=== PATIENT | male | born 1980 | race Caucasian/White ===

== ENCOUNTER 2018-09-25 16:37 | Inpatient (IN) | payer OTHER ==
--- NOTE | 2018-09-25 18:42 | HP ---
"CIWA Score Nausea/Vomitin-Mild Nausea/No Vomiting Muscle Tremors: 4-Moderate,w/Arms Extend Anxiety: 3 Agitation: 4-Moderately Restless Paroxysmal Sweats: 3 (Increased facial moisture) Orientation: 1-Uncertain about Date Tacttile Disturbances: 0-None Auditory Disturbances: 0-None Visual Disturbances: 0-None Headache: 0-None Present CIWA-Ar Total Score: 16 - Admission Criteria OASAS Guidelines: Admission for Medically Managed Detox: Requires at least one of the followin. CIWA greater than 12 2. Seizures within the past 24 hours 3. Delirium tremens within the past 24 hours 4. Hallucinations within the past 24 hours 5. Acute intervention needed for co occurring medical disorder 6. Acute intervention needed for co occurring psychiatric disorder 7. Severe withdrawal that cannot be handled at a lower level of care (continued vomiting, continued diarrhea, abnormal vital signs) requiring intravenous medication and/or fluids 8. Patient presents the following: CIWA greater than 12 Admission Criteria Met: Admission criteria met Admission ROS [facility] Chief Complaint: Having withdrawal from alcohol. Allergies/Adverse Reactions: Allergies Allergy/AdvReac Type Severity Reaction Status Date / Time No Known Allergies Allergy Verified 09/25/18 18:49 History of Present Illness: This is the first [facility] admission for this 38 yom w/ a hx of poly-substance use. Alcohol use began at age 15. Drinks about 1 L Vodka daily Marijuana use began at age [age]. Cocaine use began at age [age]. Nicotine use began at age [age]. Heroin use began at age 18. States no illicit relapse in 1 month. Receiving methadone maintenance treatment - [facility] - [facility]. Currently on Methadone 100 mg PO daily. States last medicated today. Longest length of sobriety 1 year. Hx: Blackouts - last 2 weeks ago Hx: 4-5 overdoses in 2016. Denies seizures. PMH: Exercise induced Asthma. Last exacerbation 2 weeks ago. Denies other significant PMH Mental Health: Hx Depression. Denies thoughts of harming self or others. States used to take Effexor. Last took 1.5 years ago. Search Terms: Tyler Devries, 1980 Search Date: 09/25/2018 06:38:33 PM The Drug Utilization Report below displays all of the controlled substance prescriptions, if any, that your patient has filled in the last twelve months. The information displayed on this report is compiled from pharmacy submissions to the Department, and accurately reflects the information as submitted by the pharmacies. This report was requested by: Jessica Bonner | Reference #: [id number] There are no results for the search terms that you entered. Exam Limitations: No Limitations - Ebola screening Have you traveled outside of the country in the last 21 days: No Have you had contact with anyone from an Ebola affected area: No Have you been sick,other than usual withdrawal symptoms: No Do you have a fever: No - Review of Systems Constitutional: Diaphoresis, Changes in sleep (Difficulty ffalling and staying asleep.) EENT: reports: Blurred Vision (Missing teeth. Chews and swallows ok.) Respiratory: reports: No Symptoms reported Cardiac: reports: Irregular Heart Rate (When using cocaine) GI: reports: Vomiting : reports: No Symptoms Reported Musculoskeletal: reports: No Symptoms Reported Integumentary: reports: Dryness (Only when drinks) Neuro: reports: Tremors Endocrine: reports: No Symptoms Reported Hematology: reports: No Symptoms Reported Psychiatric: reports: Judgement Intact, Orientated x3 (Missed date by one), Agitated, Anxious, Depressed (Denies thoughts of harming self or others.) Patient History - Patient Medical History Hx Asthma: Yes (Exercise induced) Hx Seizures: No Hx Liver Disease: No Hx Sexually Transmitted Disorders: No - PPD History Previous Implant?: Yes Documented Results: Negative w/proof Implanted On Prior [facility] Admission?: No PPD to be Administered?: Yes - Smoking Cessation Smoking history: Current every day smoker Have you smoked in the past 12 months: Yes Aproximately how many cigarettes per day: 10 Hx Chewing Tobacco Use: No Initiated information on smoking cessation: Yes 'Breaking Loose' booklet given: 09/25/18 - Substance & Tx. History Hx Alcohol Use: Yes Hx Substance Use: Yes Substance Use Type: Alcohol, Cocaine, Marijuana Hx Substance Use Treatment: Yes (rehab, long-term; Currently on MMTP) - Substances Abused Alcohol Route: Oral Frequency: Daily Amount used: Vodka 1 liter Age of first use: 15 Date of Last Use: 09/25/18 Cocaine Route: Smoking Frequency: Daily Amount used: $100 Age of first use: 15 Date of Last Use: 09/24/18 Marijuana/Hashish Route: Smoking Frequency: Daily Amount used: $5.00 Age of first use: 15 Date of Last Use: 09/24/18 Admission Physical Exam [facility] - Vital Signs Vital Signs: Vital Signs - 24 hr 09/25/18 18:06 Temperature 96.1 F L Pulse Rate 83 Respiratory 18 Rate Blood Pressure 130/70 - Physical General Appearance: Yes: Mild Distress, Tremorous, Sweating, Anxious HEENTM: Yes: EOMI, Hearing grossly Normal, Normal ENT Inspection, Normocephalic , Normal Voice, TOÑO, Pharynx Normal Respiratory: Yes: Chest Non-Tender, Lungs Clear, Normal Breath Sounds, No Respiratory Distress Neck: Yes: No masses,lesions,Nodules, Supple Breast: Yes: Breast Exam Deferred Cardiology: Yes: Regular Rhythm, Regular Rate, S1, S2 Abdominal: Yes: Non Tender, Soft, Increased Bowel Sounds Genitourinary: Yes: Within Normal Limits Back: Yes: Normal Inspection Musculoskeletal: Yes: full range of Motion, Gait Steady Extremities: Yes: Normal Capillary Refill, Normal Range of Motion, Non-Tender, Tremors (Gross tremors of hands) Neurological: Yes: paster hat lining II-XII NML intact, Alert, Motor Strength 5/5, Normal Mood /Affect Integumentary: Yes: Normal Color, Dry, Warm, Diaphoresis (Facial area only) Lymphatic: Yes: Within Normal Limits - Diagnostic (1) Alcohol dependence with uncomplicated withdrawal Current Visit: Yes Status: Acute (2) Nicotine dependence, uncomplicated Current Visit: Yes Status: Chronic Qualifiers: Nicotine product type: cigarettes Qualified Code(s): F17.210 - Nicotine dependence, cigarettes, uncomplicated (3) Methadone maintenance therapy patient Current Visit: Yes Status: Chronic (4) Cocaine dependence, uncomplicated Current Visit: Yes Status: Chronic (5) Cannabis dependence, uncomplicated Current Visit: Yes Status: Chronic (6) Asthma Current Visit: Yes Status: Chronic Qualifiers: Asthma severity: mild Asthma persistence: unspecified Asthma complication type: unspecified Qualified Code(s): J45.909 - Unspecified asthma , uncomplicated Cleared for Admission S - Detox or Rehab [facility] Level of Care: Medically Managed Detox Regimen/Protocol: Librium [facility] Breath Alcohol Content Breath Alcohol Content: 0.052 Urine Drug Screen - Results Drug Screen Negative: No Urine Drug Screen Results: THC-Marijuana, PEG-Cocaine, MTD-Methadone"
[2018-09-25] MEDS ORDERED: IBUPROFEN 400 MG TABLET (FP) PO PRN (20:51)
[2018-09-25] MEDS ORDERED: P-EPHED 60MG/TRIPROLIDI 2.5MG TABLET PO PRN (20:51)
[2018-09-25] MEDS ORDERED: MAGNESIUM HYDROX 2400MG/30ML ORAL SUSPENSION 30 ML CUP PO PRN (20:51)
[2018-09-25] MEDS ORDERED: MAG HYDROX/AL HYDROX/SIMETH 30 ML UNIT-DOSE CUP PO PRN (20:51)
[2018-09-25] MEDS ORDERED: ACETAMINOPHEN 325 MG TABLET (FP) PO PRN (20:51)
[2018-09-25] MEDS ORDERED: NICOTINE POLACRILEX 2 MG GUM BC PRN (20:51)
[2018-09-25] MEDS ORDERED: MENTHOL/PHENOL 1 EACH UD MM PRN (20:51)
[2018-09-25] MEDS ORDERED: chlordiazePOXIDE HCL 25 MG CAPSULE PO ONE (20:51)
[2018-09-25] MEDS ORDERED: LOPERAMIDE HCL 2 MG CAPSULE PO PRN (20:51)
[2018-09-25] MEDS ORDERED: MAGNESIUM CITRATE 300 ML BOTTLE PO PRN (20:51)
[2018-09-25] MEDS ORDERED: chlordiazePOXIDE HCL 25 MG CAPSULE PO PRN (20:51)
[2018-09-25 21:15] VITALS: BMI 24.4
[2018-09-25] MEDS ORDERED: MELATONIN 5 MG TABLETS PO PRN (22:00)
[2018-09-25] MEDS: chlordiazePOXIDE HCL 25 MG CAPSULE PO SCH (22:15)
[2018-09-25] MEDS: THIAMINE HCL 100 MG TABLET (FP) PO SCH (22:16)
[2018-09-25] MEDS ORDERED: ALBUTEROL SO4 8 GM HFA INHALER IH PRN (22:34)
[2018-09-26 02:04] LABS: URINE APPEARANCE CLEAR; URINE BILIRUBIN NEGATIVE (<2.0 mg/dL); URINE COLOR YELLOW; URINE GLUCOSE (UA) NEGATIVE (NEGATIVE); URINE KETONE TRACE (NEGATIVE); URINE LEUK ESTERASE NEGATIVE (NEGATIVE); URINE NITRITE NEGATIVE (NEGATIVE); URINE PROTEIN NEGATIVE (NEGATIVE); URINE UROBILINOGEN NEGATIVE mg/dL (0.2-1.0)
[2018-09-26] MEDS: chlordiazePOXIDE HCL 25 MG CAPSULE PO SCH ×4 (06:04→22:13)
[2018-09-26] MEDS ORDERED: METHADONE HCL 10 MG TABLET PO SCH (07:15)
[2018-09-26] MEDS ORDERED: METHADONE HCL 10 MG TABLET ONE (07:42)
[2018-09-26] MEDS ORDERED: METHADONE HCL 40 MG DISPERSABLE TABLET ONE (07:42)
[2018-09-26] MEDS: METHADONE 80 MG, METHADONE 20 MG PO SCH (07:43)
--- NOTE | 2018-09-26 09:21 | PN ---
[facility] CIWA - CIWA Score Nausea/Vomitin Muscle Tremors: 2 Anxiety: 2 Agitation: 2 Paroxysmal Sweats: 1-Minimal Palms Moist Orientation: 0-Oriented Tacttile Disturbances: 1-Very Mild Itch/Numbness Auditory Disturbances: 1-Very Mild Visual Disturbances: 0-None Headache: 2-Mild CIWA-Ar Total Score: 13 BHS Progress Note (SOAP) Subjective: alert,irritable,anxious,interrupted sleep,tremor,pain in the body Objective: 09/26/18 09:20 Vital Signs Temperature 97.3 F L 09/26/18 09:13 Pulse Rate 65 09/26/18 09:13 Respiratory Rate 18 09/26/18 09:13 Blood Pressure 104/59 L 09/26/18 09:13 O2 Sat by Pulse Oximetry (%) 09/26/18 09:20 labs pending Assessment: 09/26/18 09:20 withdrawal symptom Plan: continue detox
[2018-09-26] MEDS: PRENATAL VITAMINS W/ FOLIC ACID TABLET (FP) PO SCH (10:22)
[2018-09-26] MEDS: NICOTINE 14 MG/24 HOURS TOPICAL PATCH TD SCH (10:22)
[2018-09-26 10:30] LABS: HEMATOCRIT 40.8 % (35.4-49); HEMOGLOBIN 14.1 GM/dL (11.7-16.9); MCHC 34.5 g/dl (32.0-35.9); MEAN CELL VOLUME 95.7 fl (80-96); MEAN PLT VOLUME 8.7 fl (7.5-11.1); PLATELET COUNT 178 K/MM3 (134-434); RBC 4.26 M/mm3 (4.00-5.60); RDW 13.4 % (11.9-15.9); WHITE BLOOD COUNT 5.9 K/mm3 (4.0-10.0)
[2018-09-26 10:31] LABS: ALBUMIN 3.5 g/dl (3.4-5.0); ALK PHOS 73 U/L (45-117); ANION GAP 4 MMOL/L (8-16); BILIRUBIN,TOTAL 0.5 mg/dL (0.2-1); BLOOD UREA NITROGEN 16 mg/dL (7-18); CALCIUM 8.6 mg/dL (8.5-10.1); CHLORIDE 103 mmol/L (98-107); CO2 31 mmol/L (21-32); GLUCOSE,RANDOM 87 mg/dL (74-106); SGOT/AST 28 U/L (15-37); SGPT/ALT 37 U/L (13-61); SODIUM 138 mmol/L (136-145); TOT PROT 6.4 g/dl (6.4-8.2)
--- NOTE | 2018-09-26 15:10 | EKG ---
Test Reason : Blood Pressure : / mmHG Vent. Rate : 078 BPM Atrial Rate : 078 BPM P-R Int : 170 ms QRS Dur : 078 ms QT Int : 384 ms P-R-T Axes : 042 040 048 degrees QTc Int : 437 ms POOR DATA QUALITY, INTERPRETATION MAY BE ADVERSELY AFFECTED NORMAL SINUS RHYTHM NORMAL ECG NO PREVIOUS ECGS AVAILABLE Confirmed by Luis Humphreys MD ([id number]) on 09/26/2018 3:10:22 PM Referred By: Confirmed By:Luis Humphreys MD
[2018-09-26] MEDS: THIAMINE HCL 100 MG TABLET (FP) PO SCH (22:13)
[2018-09-27] MEDS ORDERED: METHADONE HCL 10 MG TABLET ONE (04:50)
[2018-09-27] MEDS ORDERED: METHADONE HCL 40 MG DISPERSABLE TABLET ONE (04:50)
[2018-09-27] MEDS: METHADONE 80 MG, METHADONE 20 MG PO SCH (05:26)
[2018-09-27] MEDS: chlordiazePOXIDE HCL 25 MG CAPSULE PO SCH ×3 (05:26→17:41)
--- NOTE | 2018-09-27 09:50 | CONSULT ---
[facility] Psychiatric Consult - Data Date of interview: 09/27/18 Admission source: [facility] Identifying data: This is the first [facility] admission for this 38 years old male, single father of one, living alone, unemp[loyed, on PA support, with no psychiatric hospitalization history, with history of Alcohol, Cannabis, Cocaine , Nicotine dependence, Opioids dependence as well, patient on agonist thrapy Methadone 100mg poqd. Patient is here reporting withdrawal symptoms and seeking detox. Substance Abuse History: Smoking history: Current every day smoker. Have you smoked in the past 12 months: Yes. Aproximately how many cigarettes per day: 10. Hx Chewing Tobacco Use: No. Initiated information on smoking cessation: Yes. 'Breaking Loose' booklet given: 09/25/18. - Substance & Tx. History. Hx Alcohol Use: Yes. Hx Substance Use: Yes. Substance Use Type: Alcohol, Cocaine , Marijuana. Hx Substance Use Treatment: Yes (rehab, long-term; Currently on MMTP). - Substances Abused. Alcohol. Route: Oral. Frequency: Daily. Amount used: Vodka 1 liter. Age of first use: 15. Date of Last Use: 09/25/18. Cocaine. Route: Smoking. Frequency: Daily. Amount used: $100. Age of first use: 15. Date of Last Use: 09/24/18. Marijuana/Hashish. Route: Smoking. Frequency: Daily. Amount used: $5.00. Age of first use: 15. Date of Last Use: 09/24/18 Medical History: Asthma, MMTP 100 mg/day Psychiatric History: Patient approached MD in a lobby reporting history of depression and anxiety, insomnia, asking for medications aidr, eports no psychiatric hospitaliozation history, no suicidal, homicidal history, states taking prior to admission: Trazodone 150 mg po qhs Physical/Sexual Abuse/Trauma History: Denies Additional Comment: Trazodone 150 mg po qhs Mental Status Exam - Mental Status Exam Alert and Oriented to: Person Cognitive Function: Fair Patient Appearance: Unkempt Mood: Anxious Affect: Mood Congruent Patient Behavior: Talkative, Cooperative Speech Pattern: Appropriate Voice Loudness: Mildly Loud Thought Process: Goal Oriented Thought Disorder: Being Controlled Hallucinations: Denies Suicidal Ideation: Denies Homicidal Ideation: Denies Insight/Judgement: Fair Sleep: Difficulty falling asleep Appetite: Fair Muscle strength/Tone: Normal Gait/Station: Normal Additional Comments: Trazodone 150 mg po qhs Psychiatric Findings - Problem List ([place] 1, 2,3) (1) Alcohol dependence with uncomplicated withdrawal Current Visit: Yes Status: Acute (2) Cannabis dependence, uncomplicated Current Visit: Yes Status: Chronic (3) Cocaine dependence, uncomplicated Current Visit: Yes Status: Chronic (4) Methadone maintenance therapy patient Current Visit: Yes Status: Chronic (5) Nicotine dependence, uncomplicated Current Visit: Yes Status: Chronic Qualifiers: Nicotine product type: cigarettes Qualified Code(s): F17.210 - Nicotine dependence, cigarettes, uncomplicated - Initial Treatment Plan Initial Treatment Plan: Trazodone 150 mg po qhs. Effexor XR 150MG poqd
[2018-09-27] MEDS: NICOTINE 14 MG/24 HOURS TOPICAL PATCH TD SCH (10:15)
[2018-09-27] MEDS: PRENATAL VITAMINS W/ FOLIC ACID TABLET (FP) PO SCH (10:15)
[2018-09-27] MEDS ORDERED: hydrOXYzine PAMOATE 50 MG CAPSULE (FP) PO PRN (12:36)
[2018-09-27] MEDS ORDERED: ONDANSETRON *ODT* 4 MG TABLET SL PRN (13:45)
--- NOTE | 2018-09-27 16:48 | PN ---
S CIWA - CIWA Score Nausea/Vomitin-No Nausea/No Vomiting Muscle Tremors: 3 Anxiety: 2 Agitation: 1-Slight > Activity Paroxysmal Sweats: 3 Orientation: 0-Oriented Tacttile Disturbances: 2-Mild Itch/Numbness/Burn Auditory Disturbances: 0-None Visual Disturbances: 0-None Headache: 0-None Present CIWA-Ar Total Score: 11 BHS Progress Note (SOAP) Subjective: Interrupted Sleep, Sweating, Fatigue, Body Aches, Stomach Cramping, Tremors. Objective: PATIENT A & O X 3. IN NO ACUTE DISTRESS. 09/27/18 16:44 Vital Signs Temperature 97.0 F L 09/27/18 12:48 Pulse Rate 75 09/27/18 12:48 Respiratory Rate 18 09/27/18 12:48 Blood Pressure 111/69 09/27/18 12:48 O2 Sat by Pulse Oximetry (%) Laboratory Tests 09/25/18 09/26/18 09/26/18 22:50 07:00 07:00 WBC 5.9 RBC 4.26 Hgb 14.1 Hct 40.8 MCV 95.7 MCH 33.0 MCHC 34.5 RDW 13.4 Plt Count 178 MPV 8.7 Sodium 138 Potassium 4.0 Chloride 103 Carbon Dioxide 31 Anion Gap 4 L BUN 16 Creatinine 1.0 Creat Clearance w eGFR > 60 Random Glucose 87 Calcium 8.6 Total Bilirubin 0.5 AST 28 ALT 37 Alkaline Phosphatase 73 Total Protein 6.4 Albumin 3.5 Urine Color Yellow Urine Appearance Clear Urine pH 5.0 Ur Specific [place] 1.026 Urine Protein Negative Urine Glucose (UA) Negative Urine Ketones Trace H Urine Blood Negative Urine Nitrite Negative Urine Bilirubin Negative Urine Urobilinogen Negative Ur Leukocyte Esterase Negative RPR Titer 09/26/18 07:00 WBC RBC Hgb Hct MCV MCH MCHC RDW Plt Count MPV Sodium Potassium Chloride Carbon Dioxide Anion Gap BUN Creatinine Creat Clearance w eGFR Random Glucose Calcium Total Bilirubin AST ALT Alkaline Phosphatase Total Protein Albumin Urine Color Urine Appearance Urine pH Ur Specific [place] Urine Protein Urine Glucose (UA) Urine Ketones Urine Blood Urine Nitrite Urine Bilirubin Urine Urobilinogen Ur Leukocyte Esterase RPR Titer Nonreactive LABS NOTED. Assessment: 09/27/18 16:45 WITHDRAWAL SYMPTOMS. Plan: CONTINUE DETOX. INCREASE DAILY PO FLUID INTAKE.
[2018-09-27] MEDS: chlordiazePOXIDE 5 MG CAPSULE PO SCH (22:07)
[2018-09-27] MEDS: traZODone HCL 50 MG TABLET (FP) PO SCH (22:08)
[2018-09-27] MEDS: THIAMINE HCL 100 MG TABLET (FP) PO SCH (22:08)
[2018-09-28] MEDS ORDERED: METHADONE HCL 10 MG TABLET ONE (04:32)
[2018-09-28] MEDS ORDERED: METHADONE HCL 40 MG DISPERSABLE TABLET ONE (04:32)
[2018-09-28] MEDS: chlordiazePOXIDE 5 MG CAPSULE PO SCH ×3 (06:03→17:26)
[2018-09-28] MEDS: METHADONE 80 MG, METHADONE 20 MG PO SCH (06:03)
--- NOTE | 2018-09-28 08:55 | PN ---
Psychiatric Progress Note Vital Signs: Vital Signs Period Temp Pulse Resp BP Sys/Colon Pulse Ox Last 24 Hr 97.0 F-97.6 F 69-76 17-20 95-118/50-72 Date of Session: 09/28/18 Chief Complaint:: My Effexor oeder HPI: Patient reports hs is taking prior to admission Trazodone 150mg and Effexor ER 150mg poqd. Additonal order for Effexor er 150mg poqd done. Current Medications: Active Medications Generic Name Dose Route Start Last Admin Trade Name Freq PRN Reason Stop Dose Admin Acetaminophen 650 mg 09/25/18 20:51 Tylenol - PO Q4H PRN FEVER Al Hydroxide/Mg Hydroxide 30 ml 09/25/18 20:51 Mylanta Oral Suspension - PO Q6H PRN DYSPEPSIA Albuterol Sulfate 2 puff 09/25/18 22:34 Ventolin Hfa Inhaler - IH QID PRN ASTHMA Chlordiazepoxide HCl 15 mg 09/27/18 23:00 09/28/18 06:03 Librium - PO 09/28/18 17:01 15 mg [id number] BRYANT Administration Chlordiazepoxide HCl 25 mg 09/25/18 20:51 Librium - PO 09/28/18 20:50 Q4H PRN WITHDRAWAL(CONT SUBST) Chlordiazepoxide HCl 10 mg 09/28/18 23:00 Librium - PO 09/29/18 17:01 [id number] BRYANT Eucalyptus/Menthol/Phenol/Sorbitol 1 each 09/25/18 20:51 Cepastat Lozenge - MM Q4H PRN SORE THROAT Hydroxyzine Pamoate 50 mg 09/27/18 12:36 Vistaril - PO Q6H PRN ANXIETY Ibuprofen 400 mg 09/25/18 20:51 Motrin - PO Q6H PRN PAIN LEVEL 4-6 Loperamide HCl 4 mg 09/25/18 20:51 Imodium - PO Q6H PRN DIARRHEA Magnesium Citrate 300 ml 09/25/18 20:51 Citroma - PO Q48H PRN CONSTIPATION Magnesium Hydroxide 30 ml 09/25/18 20:51 Milk Of Magnesia - PO DAILY PRN CONSTIPATION Melatonin 10 mg 09/25/18 22:00 Melatonin PO HS PRN INSOMNIA Methadone HCl 80 mg/ Methadone 100 mg 09/26/18 07:30 09/28/18 06:03 HCl 20 mg PO 100 mg DAILY@0600 BRYANT Administration Nicotine 14 mg 09/26/18 10:00 09/27/18 10:15 Nicoderm Patch - TD 14 mg DAILY BRYANT Administration Nicotine Polacrilex 2 mg 09/25/18 20:51 Nicorette Gum - BC Q2H PRN NICOTINE REPLACEMENT RX Ondansetron HCl 4 mg 09/27/18 13:45 Zofran Odt - SL Q6H PRN NAUSEA AND/OR VOMITING Multivit/Folic Acid/Iron 1 tab 09/26/18 10:00 09/27/18 10:15 Vitamins ([facility]) - PO 1 tab DAILY BRYANT Administration Pseudoephedrine/Triprolidine 1 combo 09/25/18 20:51 Actifed - PO TID PRN NASAL CONGESTION Thiamine HCl 100 mg 09/25/18 22:00 09/27/18 22:08 Vitamin B1 - PO 100 mg HS BRYANT Administration Trazodone HCl 150 mg 09/27/18 22:00 09/27/18 22:08 Desyrel - PO 150 mg HS BRYANT Administration Venlafaxine HCl 150 mg 09/28/18 10:00 Effexor Xr - PO DAILY [facility] Medication(s) Change(s): Effexor er 150MG POQD Mental Status Exam - Mental Status Exam Alert and Oriented to: Person Cognitive Function: Fair Patient Appearance: Well Groomed Mood: Apprehensive Affect: Mood Congruent Patient Behavior: Cooperative Speech Pattern: Appropriate Voice Loudness: Normal Thought Process: Circumstantial Thought Disorder: Being Controlled Hallucinations: Denies Suicidal Ideation: Denies Homicidal Ideation: Denies Insight/Judgement: Fair Sleep: Difficulty falling asleep Appetite: Fair Muscle strength/Tone: Normal Gait/Station: Normal Additional Comments: Effexor er 150MG POQD Psychiatric Treatment Plan - Problem List (1) Alcohol dependence with uncomplicated withdrawal Current Visit: Yes (2) Cannabis dependence, uncomplicated Current Visit: Yes (3) Cocaine dependence, uncomplicated Current Visit: Yes (4) Methadone maintenance therapy patient Current Visit: Yes (5) Nicotine dependence, uncomplicated Current Visit: Yes Qualifiers: Nicotine product type: cigarettes Qualified Code(s): F17.210 - Nicotine dependence, cigarettes, uncomplicated Initial treatment plan: Effexor er 150MG POQD
[2018-09-28] MEDS: PRENATAL VITAMINS W/ FOLIC ACID TABLET (FP) PO SCH (10:13)
[2018-09-28] MEDS: NICOTINE 14 MG/24 HOURS TOPICAL PATCH TD SCH (10:13)
[2018-09-28] MEDS: VENLAFAXINE HCL 150 MG E.R. CAPSULE PO SCH (10:47)
--- NOTE | 2018-09-28 11:05 | PN ---
BHS Progress Note (SOAP) Subjective: sweats anxiety Objective: 09/28/18 11:03 Vital Signs Temperature 97.7 F 09/28/18 10:22 Pulse Rate 73 09/28/18 10:22 Respiratory Rate 18 09/28/18 10:22 Blood Pressure 104/58 L 09/28/18 10:22 O2 Sat by Pulse Oximetry (%) aaox3 ambulating no acute distress Assessment: 09/28/18 11:03 mild withdrawal sx Plan: continue detox increase fluids d/c in am
[2018-09-28] MEDS: THIAMINE HCL 100 MG TABLET (FP) PO SCH (22:08)
[2018-09-28] MEDS: chlordiazePOXIDE HCL 10 MG CAPSULE PO SCH (22:08)
[2018-09-28] MEDS: traZODone HCL 50 MG TABLET (FP) PO SCH (22:08)
[2018-09-29] MEDS ORDERED: METHADONE HCL 40 MG DISPERSABLE TABLET ONE (04:30)
[2018-09-29] MEDS ORDERED: METHADONE HCL 10 MG TABLET ONE (04:31)
[2018-09-29] MEDS: METHADONE 80 MG, METHADONE 20 MG PO SCH (05:16)
[2018-09-29] MEDS: chlordiazePOXIDE HCL 10 MG CAPSULE PO SCH ×2 (05:16→10:12)
[2018-09-29 09:24] VITALS: BP 104/57; PULSE 68; TEMP 98.4
[2018-09-29] MEDS: VENLAFAXINE HCL 150 MG E.R. CAPSULE PO SCH (10:12)
[2018-09-29] MEDS: NICOTINE 14 MG/24 HOURS TOPICAL PATCH TD SCH (10:12)
[2018-09-29] MEDS: PRENATAL VITAMINS W/ FOLIC ACID TABLET (FP) PO SCH (10:12)
--- NOTE | 2018-09-29 12:42 | PN ---
[facility] Progress Note (SOAP) Subjective: body aches Objective: 09/29/18 12:42 Vital Signs Temperature 98.4 F 09/29/18 09:23 Pulse Rate 68 09/29/18 09:23 Respiratory Rate 18 09/29/18 09:23 Blood Pressure 104/57 L 09/29/18 09:23 O2 Sat by Pulse Oximetry (%) aaox3 ambulating no acute distress Assessment: 09/29/18 12:42 mild withdrawal sx Plan: continue detox motrin/tylenol prn increase fluids d/c in am
--- NOTE | 2018-09-29 16:02 | HP ---
[facility] Rehab Assess/Revision - Admission History Admitted to Rehab from: [facility] - Vital signs Vital Signs: Vital Signs Period Temp Pulse Resp BP Sys/Colon Pulse Ox Last 24 Hr 97.3 F-98.4 F 64-75 18-18 104-115/53-71 - Findings Detox History & Physical reviewed: Yes Concur with findings: Yes Inpatient Rehab Admission - Rehab Decision to Admit Inpatient rehab admission?: Yes - Initial Determination Are CD services needed?: Yes Free of communicable disease: Yes Not in need of hospitalization: Yes - Rehab Admission Criteria Previous failed treatment: Yes Poor recovery environment: Yes Comorbidities: Yes Lacks judgement: Yes Patient is meeting Inpatient Rehab admission criteria:: Yes
== END 2018-09-29 12:22 | disposition other institution (70) | DRG 773 ==
LOC: YASAS 16:37 → Y6N 20:54
PROVIDERS: ADMIT Surgery; ATTEND Surgery
PROC: HZ2ZZZZ Detoxification Services for Substance Abuse Treatment (ICD-10-PCS; principal; 2018-09-25)
DX: F10.230 Alcohol dependence with withdrawal, uncomplicated (principal); F11.20 Opioid dependence, uncomplicated; F14.20 Cocaine dependence, uncomplicated; F12.20 Cannabis dependence, uncomplicated; F17.210 Nicotine dependence, cigarettes, uncomplicated; J45.998 Other asthma
CPT/HCPCS: 36415; 80053; 81003; 85027; 86593; 93005; 93010

== ENCOUNTER 2018-09-29 12:47 | Inpatient (IN) | payer OTHER ==
[2018-09-29 13:36] VITALS: BP 102/63; PULSE 80; TEMP 98.3
--- NOTE | 2018-09-29 15:08 | PN ---
[facility] Progress Note Note: PT ADMITTED FROM [address] [place] [address] TO REHAB DECLINED TREATMENT WITHIN AN HOUR OF ARRIVAL TO THE UNIT STATING THAT HE HAS TO GO HOME TO TAKE CARE OF THINGS AND NOT READY FOR TREATMENT. PT WAS SEEN BY THE COUNSELLING FINGERNAIL SCULPTURER, CLAUDIA DRAPER. PT IS WITH [facility] ON [facility] AND WILL FOLLOW UP TREATMENT . REPORTS HE HAS PCP DR. POTTER ON [facility], [place] WHO HE USES WHEN NEEDED. ALERT O X 3. IN NAD. Vital Signs - 24 hr 09/29/18 12:53 Temperature 98.3 F Pulse Rate 80 Respiratory 18 Rate Blood Pressure 102/63 PLAN:PT SIGNED OUT AMA
== END 2018-09-29 14:00 | disposition left against medical advice (07) | DRG 770 ==
LOC: YASAS 12:47 → Y5N 12:48
PROVIDERS: ADMIT Neuromusculoskeletal Medicine & OMM; ATTEND Neuromusculoskeletal Medicine & OMM
PROC: HZ42ZZZ Group Counseling for Substance Abuse Treatment, Cognitive-Behavioral (ICD-10-PCS; principal; 2018-09-29)
DX: F10.20 Alcohol dependence, uncomplicated (principal); F11.20 Opioid dependence, uncomplicated; F14.20 Cocaine dependence, uncomplicated; F12.20 Cannabis dependence, uncomplicated; F17.210 Nicotine dependence, cigarettes, uncomplicated; J45.998 Other asthma